=== PATIENT | male | born 1990 | race Caucasian/White ===

== ENCOUNTER 2021-05-07 20:54 | Emergency (ER) | payer SELFPAY ==
[~2021-05-07] VITALS: Ht 193 cm; Wt 86.2 kg
== END 2021-05-07 21:31 | disposition home or self-care (01) ==
LOC: ER 20:54
DX: R09.89 Other specified symptoms and signs involving the circulatory and respiratory systems (principal); Z20.822 Contact with and (suspected) exposure to COVID-19
CPT/HCPCS: 99284